=== PATIENT | female | born 1990 | race African-American/Black ===

== ENCOUNTER 2018-06-03 18:13 | Emergency (ER) | payer OTHER ==
[~2018-06-03] VITALS: Ht 170.2 cm; Wt 65.3 kg
[2018-06-03] MEDS ORDERED: IV NORMAL SALINE 1,000ML 1,000 ML IV SCH (18:38)
[2018-06-03 19:14] LABS: BASO # 0.1 x10^3/uL (0.0-0.2); BASO % 1 % (0-3); EOS # 0.2 x10^3/uL (0.0-0.7); EOS % 1 % (0-3); HEMATOCRIT 42.3 % (36.0-47.0); HEMOGLOBIN 14.8 g/dL (12.0-15.5); LYMPH # 0.9 x10^3/uL (1.0-4.8); LYMPH % 7 % (24-48); MEAN CORPUSCULAR HEMOGLOBIN 31 pg (25-35); MEAN CORPUSCULAR HGB CONC 35 g/dL (31-37); MEAN CORPUSCULAR VOLUME 89 fL (79-100); MONO # 0.4 x10^3/uL (0.0-1.1); MONO % 3 % (0-9); NEUT # 11.1 x10^3uL (1.8-7.7); NEUT % 88 % (31-73); PLATELET COUNT 292 x10^3/uL (140-400); RED BLOOD COUNT 4.73 x10^6/uL (3.50-5.40); RED CELL DISTRIBUTION WIDTH 12.3 % (11.5-14.5); WHITE BLOOD COUNT 12.6 x10^3/uL (4.0-11.0)
[2018-06-03 19:19] LABS: BACTERIA,URINE MANY /HPF (0-FEW); BILIRUBIN,URINE NEG (NEG); CLARITY,URINE CLOUDY; COLOR,URINE YELLOW; GLUCOSE,URINE NEG (NEG); NITRITE,URINE NEG (NEG); RBC,URINE 0 /HPF (0-2); SQUAMOUS EPITHELIAL CELL,UR OCC /LPF; UROBILINOGEN,URINE 0.2 mg/dL (0.2 mg/dL); WBC,URINE OCC /HPF (0-4)
--- NOTE | 2018-06-03 19:24 | PHYS DOC ---
Past History Past Medical History: No Pertinent History Past Surgical History: Appendectomy Alcohol Use: None Drug Use: None Adult General Chief Complaint Chief Complaint: ABDOMINAL PAIN HPI HPI 28-year-old female presents with abdominal pain for last 2 days. The patient initially thought that she was constipated, had a good bowel movement yesterday. She continues to have intermittent cramping pain and nausea that is worse after eating. She has been unable to eat very much today because she feels full. The last few weeks she has noticed that she has some crampy abdominal pain after eating that fades over time. She has previously had an appendectomy. She denies increased urinary frequency or dysuria. No diarrhea. He took a home test was negative.[] Review of Systems Review of Systems Constitutional: Denies fever or chills [] Eyes: Denies change in visual acuity, redness, or eye pain [] HENT: Denies nasal congestion or sore throat [] Respiratory: Denies cough or shortness of breath [] Cardiovascular: No additional information not addressed in HPI [] GI: Denies abdominal cramping[] : Denies dysuria or hematuria [] Musculoskeletal: Denies back pain or joint pain [] Integument: Denies rash or skin lesions [] Neurologic: Denies headache, focal weakness or sensory changes [] Endocrine: Denies polyuria or polydipsia [] All other systems were reviewed and found to be within normal limits, except as documented in this note. Current Medications Current Medications Current Medications Medications (Trade) Dose Ordered Sig/Mesha Start Time Stop Time Status Last Admin Dose Admin Sodium Chloride 1,000 ml @ 1,000 mls/hr Q1H 06/03/18 18:38 06/03/18 19:37 Allergies Allergies Allergies Coded Allergies Type Severity Reaction Last Updated Verified No Known Drug Allergies 06/03/18 No Physical Exam Physical Exam Constitutional: Well developed, well nourished, no acute distress, non-toxic appearance. [] HENT: Normocephalic, atraumatic, bilateral external ears normal, oropharynx moist, no oral exudates, nose normal. [] Eyes: PERRLA, EOMI, conjunctiva normal, no discharge. [] Neck: Normal range of motion, no tenderness, supple, no stridor. [] Cardiovascular:Heart rate regular rhythm, no murmur [] Lungs & Thorax: Bilateral breath sounds clear to auscultation [] Abdomen: Suprapubic tenderness is most significant. Some epigastric tenderness that is mild. Old scar on her abdomen from open appendectomy.[] Skin: Warm, dry, no erythema, no rash. [] Back: No tenderness, no CVA tenderness. [] Extremities: No tenderness, no cyanosis, no clubbing, ROM intact, no edema. [] Neurologic: Alert and oriented X 3, normal motor function, normal sensory function, no focal deficits noted. [] Psychologic: Affect normal, judgement normal, mood normal. [] Current Patient Data Vital Signs Vital Signs Date Time Temp Pulse Resp B/P (MAP) Pulse Ox O2 Delivery O2 Flow Rate FiO2 06/03/18 18:20 97.6 77 16 99 Room Air Lab Results Laboratory Tests Test 06/03/18 18:16 06/03/18 18:57 POC Urine HCG, Qualitative hcg negative (Negative) White Blood Count 12.6 x10^3/uL (4.0-11.0) H Red Blood Count 4.73 x10^6/uL (3.50-5.40) Hemoglobin 14.8 g/dL (12.0-15.5) Hematocrit 42.3 % (36.0-47.0) Mean Corpuscular Volume 89 fL (79-100) Mean Corpuscular Hemoglobin 31 pg (25-35) Mean Corpuscular Hemoglobin Concent 35 g/dL (31-37) Red Cell Distribution Width 12.3 % (11.5-14.5) Platelet Count 292 x10^3/uL (140-400) Neutrophils (%) (Auto) 88 % (31-73) H Lymphocytes (%) (Auto) 7 % (24-48) L Monocytes (%) (Auto) 3 % (0-9) Eosinophils (%) (Auto) 1 % (0-3) Basophils (%) (Auto) 1 % (0-3) Neutrophils # (Auto) 11.1 x10^3uL (1.8-7.7) H Lymphocytes # (Auto) 0.9 x10^3/uL (1.0-4.8) L Monocytes # (Auto) 0.4 x10^3/uL (0.0-1.1) Eosinophils # (Auto) 0.2 x10^3/uL (0.0-0.7) Basophils # (Auto) 0.1 x10^3/uL (0.0-0.2) EKG EKG [] Radiology/Procedures Radiology/Procedures [] Course & Med Decision Making Course & Med Decision Making Pertinent Labs and Imaging studies reviewed. (See chart for details) The patient's urine is negative. Her labs show a slightly elevated white count with left shift. Her urine shows many bacteria, but is leukocyte negative and nitrate negative. Her tenderness was consistent with UTI. I offered the patient a choice between treating UTI or 3 days see if this helps or doing a CT scan to further evaluate and she has elected to try the antibiotic. Her upper abdominal pain could be developing gallbladder disease. We discussed this and she will keep an eye on it. Her labs do not show any acute signs of blockage or difficulty with the liver. She is stable for discharge at this time. [] Dragon Disclaimer Dragon Disclaimer This electronic medical record was generated, in whole or in part, using a voice recognition dictation system. Departure Departure: Referrals: ALISHA CHÁVEZ (PCP) POOJA JUÁREZ DO Jun 03, 2018 19:24
[2018-06-03 19:27] LABS: ALBUMIN 4.3 g/dL (3.4-5.0); ALBUMIN/GLOBULIN RATIO 1.2 (1.0-1.7); CALCIUM 9.1 mg/dL (8.5-10.1); CREATININE 0.7 mg/dL (0.6-1.0); GFR 101.1; TOTAL BILIRUBIN 0.8 mg/dL (0.2-1.0); TOTAL PROTEIN 7.9 g/dL (6.4-8.2)
[2018-06-03] MEDS ORDERED: KETOROLAC 30 MG/ML VIAL. IV ONE (19:30)
[2018-06-03] MEDS ORDERED: ONDANSETRON PF 4 MG/2 ML VIAL. IV ONE (19:30)
[2018-06-03] MEDS ORDERED: CEPH-264 PO (20:37)
[2018-06-03 20:40] VITALS: BP 128/74
[2018-06-03] MEDS ORDERED: CEPHALEXIN 250 MG CAPSULE PO ONE (20:45)
== END 2018-06-03 20:45 | disposition home or self-care (01) ==
LOC: ER 18:13
DX: R10.13 Epigastric pain (principal); R82.71 Bacteriuria; Z90.89 Acquired absence of other organs
CPT/HCPCS: 36415; 80053; 81001; 81025; 83690; 85025; 87086; 96374; 96375; 99284; J1885; J2405; J7030

== ENCOUNTER 2018-06-07 08:35 | Emergency (ER) | payer OTHER ==
[~2018-06-07] VITALS: Ht 170.2 cm; Wt 65.3 kg
[~2018-06-07 08:35] MED LIST: CEPH-264 PO
--- NOTE | 2018-06-07 09:12 | PHYS DOC ---
Past History Past Medical History: No Pertinent History Past Surgical History: No Surgical History Alcohol Use: None Drug Use: None Adult General Chief Complaint Chief Complaint: ABDOMINAL PAIN HPI HPI 28 yo female returns to the emergency room with right upper quadrant pain. Patient was seen here 4 days ago with intermittent right upper quadrant pain and suprapubic pain. She was treated for UTI. Patient returns today with right upper quadrant pain and vomiting. She rates the pain in 8 out of 10. It started hurting last night and she thought it would go away but it hasn't gone away. She vomited once at home. She denies , but has not had a period since March. Her hCG was negative 4 days ago. Review of Systems Review of Systems Constitutional: Denies fever or chills [] Eyes: Denies change in visual acuity, redness, or eye pain [] HENT: Denies nasal congestion or sore throat [] Respiratory: Denies cough or shortness of breath [] Cardiovascular: No additional information not addressed in HPI [] GI: RUQ abdominal pain, nausea, vomiting. Denies bloody stools or diarrhea [] : Denies dysuria or hematuria [] Musculoskeletal: Denies back pain or joint pain [] Integument: Denies rash or skin lesions [] Neurologic: Denies headache, focal weakness or sensory changes [] Endocrine: Denies polyuria or polydipsia [] All other systems were reviewed and found to be within normal limits, except as documented in this note. Current Medications Current Medications Current Medications Medications (Trade) Dose Ordered Sig/Mesha Start Time Stop Time Status Last Admin Dose Admin Hydromorphone HCl (Dilaudid) 1 mg 1X ONCE 06/07/18 09:30 06/07/18 09:31 Ondansetron HCl (Zofran) 4 mg 1X ONCE 06/07/18 09:30 06/07/18 09:31 Allergies Allergies Allergies Coded Allergies Type Severity Reaction Last Updated Verified No Known Drug Allergies 06/03/18 No Physical Exam Physical Exam Constitutional: Well developed, well nourished, mild acute distress, non-toxic appearance. Appears to be in pain[] HENT: Normocephalic, atraumatic, bilateral external ears normal, oropharynx moist, no oral exudates, nose normal. [] Eyes: PERRLA, EOMI, conjunctiva normal, no discharge. [] Neck: Normal range of motion, no tenderness, supple, no stridor. [] Cardiovascular:Heart rate regular rhythm, no murmur [] Lungs & Thorax: Bilateral breath sounds clear to auscultation [] Abdomen: RUQ and epigastric tenderness with guarding. [] Skin: Warm, dry, no erythema, no rash. [] Back: No tenderness, no CVA tenderness. [] Extremities: No tenderness, no cyanosis, no clubbing, ROM intact, no edema. [] Neurologic: Alert and oriented X 3, normal motor function, normal sensory function, no focal deficits noted. [] Psychologic: Affect normal, judgement normal, mood normal. [] Current Patient Data Vital Signs Vital Signs Date Time Temp Pulse Resp B/P (MAP) Pulse Ox O2 Delivery O2 Flow Rate FiO2 06/07/18 08:45 98.0 78 22 100 Room Air EKG EKG [] Radiology/Procedures Radiology/Procedures [] Impressions: Right upper quadrant abdominal ultrasound History: Right upper quadrant abdominal pain and nausea. Comparison: None. Technique: Transabdominal ultrasound images are obtained. Findings: Visualized pancreas is unremarkable. Liver is normal in echogenicity. Right hepatic lobe measures 16.5 cm, normal. No focal hepatic masses are identified. Portal flow is hepatopedal. Gallbladder has an unremarkable appearance. Common bile duct caliber is upper limits of normal measuring 7 mm in diameter. The right kidney measures 10.7 cm in length and is without evidence of obstruction or stone. IVC is unremarkable. IMPRESSION: 1. Common bile duct is upper limits of normal in caliber. 2. Gallbladder is normal. Electronically signed by: Joey Martínez MD (06/07/2018 10:01 AM) [id number] Course & Med Decision Making Course & Med Decision Making Pertinent Labs and Imaging studies reviewed. (See chart for details) The patient's labs are significant for a mildly elevated liver enzymes. The patient does not appear to be an obstructive pattern. The ultrasound does not show stones or definite obstruction. Her common bile duct is upper limits of normal. The patient has continued to be nauseous in the emergency room. I've given her 8 of Zofran I will give her 10 of Compazine. I will additionally give her 1 mg of Dilaudid for her pain as she seems unlikely to tolerate by mouth medication at this time. We'll discharge the patient with [place] 5/325, Compazine 10 mg, Zofran ODT 8 mg. I strongly advised that she talk with her PCP as soon as possible about general surgery consult for her gallbladder and a possible HIDA scan. [] Dragon Disclaimer Dragon Disclaimer This electronic medical record was generated, in whole or in part, using a voice recognition dictation system. Departure Departure: Scripts Prochlorperazine Maleate (Compazine) 10 Mg Tablet 10 MG PO Q6-8HRS PRN for NAUSEA/VOMITING, #20 TAB Prov: POOJA JUÁREZ DO 06/07/18 Ondansetron (ZOFRAN ODT) 8 Mg Tab.rapdis 1 TAB PO Q8HRS, #20 TAB Prov: POOJA JUÁREZ DO 06/07/18 Hydrocodone Bit/Acetaminophen (NORCO 5-325 TABLET) 1 Each Tablet 1 TAB PO PRN Q6HRS PRN for PAIN, #14 TAB 0 Refills Prov: POOJA JUÁREZ DO 06/07/18 POOJA JUÁREZ DO Jun 07, 2018 09:12
[2018-06-07 09:23] LABS: BASO % 1 % (0-3); EOS # 0.2 x10^3/uL (0.0-0.7); EOS % 4 % (0-3); HEMATOCRIT 38.2 % (36.0-47.0); HEMOGLOBIN 13.3 g/dL (12.0-15.5); LYMPH # 1.6 x10^3/uL (1.0-4.8); LYMPH % 30 % (24-48); MEAN CORPUSCULAR HEMOGLOBIN 31 pg (25-35); MEAN CORPUSCULAR HGB CONC 35 g/dL (31-37); MEAN CORPUSCULAR VOLUME 90 fL (79-100); MONO # 0.3 x10^3/uL (0.0-1.1); MONO % 5 % (0-9); NEUT # 3.2 x10^3uL (1.8-7.7); NEUT % 61 % (31-73); PLATELET COUNT 266 x10^3/uL (140-400); RED BLOOD COUNT 4.26 x10^6/uL (3.50-5.40); RED CELL DISTRIBUTION WIDTH 12.5 % (11.5-14.5); WHITE BLOOD COUNT 5.3 x10^3/uL (4.0-11.0)
[2018-06-07] MEDS ORDERED: ONDANSETRON PF 4 MG/2 ML VIAL. IV ONE ×2 (09:30→10:00)
[2018-06-07] MEDS ORDERED: HYDROmorphone PF 1 MG/ML DISP.SYRIN IM ONE (09:30)
[2018-06-07 09:34] LABS: ALBUMIN 4.1 g/dL (3.4-5.0); ALBUMIN/GLOBULIN RATIO 1.4 (1.0-1.7); CALCIUM 8.7 mg/dL (8.5-10.1); CREATININE 0.6 mg/dL (0.6-1.0); GFR 146.2; POTASSIUM 3.7 mmol/L (3.5-5.1); TOTAL BILIRUBIN 0.7 mg/dL (0.2-1.0); TOTAL PROTEIN 7.1 g/dL (6.4-8.2)
--- NOTE | 2018-06-07 10:05 | RAD ---
Right upper quadrant abdominal ultrasound History: Right upper quadrant abdominal pain and nausea. Comparison: None. Technique: Transabdominal ultrasound images are obtained. Findings: Visualized pancreas is unremarkable. Liver is normal in echogenicity. Right hepatic lobe measures 16.5 cm, normal. No focal hepatic masses are identified. Portal flow is hepatopedal. Gallbladder has an unremarkable appearance. Common bile duct caliber is upper limits of normal measuring 7 mm in diameter. The right kidney measures 10.7 cm in length and is without evidence of obstruction or stone. IVC is unremarkable. IMPRESSION: 1. Common bile duct is upper limits of normal in caliber. 2. Gallbladder is normal. Electronically signed by: Joey Martínez MD (06/07/2018 10:01 AM) [id number]
[2018-06-07 11:00] VITALS: BP 122/62
[2018-06-07 11:43] LABS: BACTERIA,URINE FEW /HPF (0-FEW); BILIRUBIN,URINE NEG (NEG); CLARITY,URINE CLOUDY; COLOR,URINE AMBER; GLUCOSE,URINE NEG (NEG); NITRITE,URINE NEG (NEG); SQUAMOUS EPITHELIAL CELL,UR MOD /LPF; UROBILINOGEN,URINE 1 mg/dL (0.2 mg/dL)
[2018-06-07] MEDS ORDERED: HYDR-971 PO (12:15)
[2018-06-07] MEDS ORDERED: ONDA8TAB12 PO (12:15)
[2018-06-07] MEDS ORDERED: PROC10TA57 PO (12:15)
[2018-06-07] MEDS ORDERED: HYDROmorphone PF 1 MG/ML DISP.SYRIN IV ONE (12:45)
[2018-06-07] MEDS ORDERED: PROCHLORPERAZINE 10 MG/2 ML VIAL. IV ONE (12:45)
== END 2018-06-07 12:35 | disposition home or self-care (01) ==
LOC: ER 08:35
DX: R10.11 Right upper quadrant pain (principal); R11.2 Nausea with vomiting, unspecified; R74.8 Abnormal levels of other serum enzymes
CPT/HCPCS: 36415; 76705; 80053; 81001; 83690; 85025; 87086; 96372; 96374; 96375; 96376; 99285; J0780; J1170; J2405

== ENCOUNTER 2018-12-07 08:50 | Emergency (ER) | payer OTHER ==
[~2018-12-07] VITALS: Ht 167.6 cm; Wt 68.0 kg
[~2018-12-07 08:50] MED LIST changes: +HYDR-3165 PO; +ONDA8TAB12 PO; +PROC10TA57 PO
[2018-12-07 09:42] LABS: HEMATOCRIT 37.3 % (36.0-47.0); HEMOGLOBIN 13.1 g/dL (12.0-15.5); RED BLOOD COUNT 4.1 x10^6/uL (3.50-5.40); RED CELL DISTRIBUTION WIDTH 12.9 % (11.5-14.5); WHITE BLOOD COUNT 7.5 x10^3/uL (4.0-11.0)
--- NOTE | 2018-12-07 10:22 | PHYS DOC ---
Past History Past Medical History: Arthritis Past Surgical History: Appendectomy Alcohol Use: None Drug Use: None Adult General Chief Complaint Chief Complaint: VAGINAL BLEEDING HPI HPI Patient is a 28 year old female who presents with complaining of abnormal vaginal bleeding. Patient is without taking any contraception and states she had regular menstruation that ended on October 24, 2018 after 2 weeks that started to have vaginal bleeding with episodes of spotting and passing blood clots intermittently. Patient denies agitation, abdominal pain except during episodes of passing blood clots, dizziness, shortness of breath and chest pain, urinary symptom. Patient had negative blood test at [facility] but his concern about having vaginal bleeding for more than one month. Review of Systems Review of Systems Constitutional: Denies fever or chills [] Eyes: Denies change in visual acuity, redness, or eye pain [] HENT: Denies nasal congestion or sore throat [] Respiratory: Denies cough or shortness of breath [] Cardiovascular: No additional information not addressed in HPI [] GI: Denies abdominal pain, nausea, vomiting, bloody stools or diarrhea [] : Denies dysuria or hematuria [] Musculoskeletal: Denies back pain or joint pain [] Integument: Denies rash or skin lesions [] Neurologic: Denies headache, focal weakness or sensory changes [] Endocrine: Denies polyuria or polydipsia [] All other systems were reviewed and found to be within normal limits, except as documented in this note. Allergies Allergies Allergies Coded Allergies Type Severity Reaction Last Updated Verified No Known Drug Allergies 06/03/18 No Physical Exam Physical Exam Constitutional: Well developed, well nourished, no acute distress, non-toxic appearance. [] HENT: Normocephalic, atraumatic, oropharynx moist. [] Eyes: PERRLA, EOMI, conjunctiva normal, no discharge. [] Neck: Normal range of motion, no tenderness, supple, no stridor. [] Cardiovascular:Heart rate regular rhythm, no murmur [] Lungs & Thorax: Bilateral breath sounds clear to auscultation [] Abdomen: Bowel sounds normal, soft, no tenderness, no masses, no pulsatile masses. [] Skin: Warm, dry, no erythema, no rash. [] Back: No tenderness, no CVA tenderness. [] Extremities: No tenderness, no cyanosis, no clubbing, ROM intact, no edema. [] Neurologic: Alert and oriented X 3, normal motor function, normal sensory function, no focal deficits noted. [] Psychologic: Affect normal, judgement normal, mood normal. [] Current Patient Data Vital Signs Vital Signs Date Time Temp Pulse Resp B/P (MAP) Pulse Ox O2 Delivery O2 Flow Rate FiO2 12/07/18 08:56 97.8 66 18 100 Room Air Lab Results Laboratory Tests Test 12/07/18 09:10 12/07/18 09:25 POC Urine HCG, Qualitative hcg negative (Negative) White Blood Count 7.5 x10^3/uL (4.0-11.0) Red Blood Count 4.10 x10^6/uL (3.50-5.40) Hemoglobin 13.1 g/dL (12.0-15.5) Hematocrit 37.3 % (36.0-47.0) Mean Corpuscular Volume 91 fL (79-100) Mean Corpuscular Hemoglobin 32 pg (25-35) Mean Corpuscular Hemoglobin Concent 35 g/dL (31-37) Red Cell Distribution Width 12.9 % (11.5-14.5) Platelet Count 318 x10^3/uL (140-400) Maternal Serum HCG Beta Subunit < 1 mIU/mL (0-6) EKG EKG [] Radiology/Procedures Radiology/Procedures [][place] [address] IMAGING REPORT Signed PATIENT: BONILLA RODRIGUES ACCOUNT: [id number] : 1990 LOCATION: ER AGE: 28 SEX: F EXAM STATUS: REG ER ORD. PHYSICIAN: DIANA MORAN MD REASON: abnormal vaginal bleeding PROCEDURE: US PELVIS W/TV US PELVIS W/TV History: Bleeding off and on Comparison: None. Findings: Multiple transabdominal sonographic images of the pelvis are submitted. Uterus measures 10 x 3.5 x 5.3 cm. Endometrium measured 0.9 cm. Right ovary measured 2.5 x 3.7 x 2.8 cm with normal low resistance vascularity. Left ovary measured 1.8 x 2.9 x 4.1 cm, normal low resistance vascularity. Transvaginal ultrasound: Multiple transvaginal sonographic images of the pelvis are submitted. Endometrium measured 0.9 cm, minimal fluid in the endometrial cavity. Uterus measured 8.4 x 4.2 x 5.3 cm. There is minimal free fluid. Right ovary measured 2.8 x 2.2 x 5 cm, normal low resistance vascularity and color flow. Left ovary measures 3.8 x 1.9 x 4.3 cm with normal low resistance vascularity and color flow. Impression: 1. Endometrial thickness is within normal limits, minimal fluid in the endometrial cavity possible minimal blood products. There is minimal free fluid. No other abnormality is demonstrated. Electronically signed by: Tye Hernandez MD (12/07/2018 11:00 AM) [id number] DICTATED AND SIGNED BY: TYE HERNANDEZ MD DATE: 12/07/18 1057 CC: ALISHA CHÁVEZ; DIANA MORAN MD ~ Course & Med Decision Making Course & Med Decision Making Pertinent Labs and Imaging studies reviewed. (See chart for details) Evaluation of patient in ER showed 28-year-old female patient complaining of abnormal vaginal bleeding for more than one month. Patient had unremarkable physical exam and labs and pelvic ultrasound. Patient instructed to follow-up with her [employer]ST for possibly starting oral contraception. Dragon Disclaimer Dragon Disclaimer This electronic medical record was generated, in whole or in part, using a voice recognition dictation system. Departure Departure: Impression: Primary Impression: Dysfunctional uterine bleeding Disposition: HOME, SELF-CARE (@1119) Condition: IMPROVED Referrals: ALISHA CHÁVEZ (PCP) Patient Instructions: Uterine Bleeding, Dysfunctional Additional Instructions: Follow-up with your [employer] E[employer] INVESTMENT ANALYST in 2 or 3 days Drink plenty of liquids Return to ER if not feeling better May take [id number] iron DIANA MORAN MD Dec 07, 2018 10:22
--- NOTE | 2018-12-07 11:04 | RAD ---
US PELVIS W/TV History: Bleeding off and on Comparison: None. Findings: Multiple transabdominal sonographic images of the pelvis are submitted. Uterus measures 10 x 3.5 x 5.3 cm. Endometrium measured 0.9 cm. Right ovary measured 2.5 x 3.7 x 2.8 cm with normal low resistance vascularity. Left ovary measured 1.8 x 2.9 x 4.1 cm, normal low resistance vascularity. Transvaginal ultrasound: Multiple transvaginal sonographic images of the pelvis are submitted. Endometrium measured 0.9 cm, minimal fluid in the endometrial cavity. Uterus measured 8.4 x 4.2 x 5.3 cm. There is minimal free fluid. Right ovary measured 2.8 x 2.2 x 5 cm, normal low resistance vascularity and color flow. Left ovary measures 3.8 x 1.9 x 4.3 cm with normal low resistance vascularity and color flow. Impression: 1. Endometrial thickness is within normal limits, minimal fluid in the endometrial cavity possible minimal blood products. There is minimal free fluid. No other abnormality is demonstrated. Electronically signed by: Black Hernandez MD (12/07/2018 11:00 AM) [id number]
[2018-12-07 11:26] VITALS: BP 125/82
== END 2018-12-07 11:27 | disposition home or self-care (01) ==
LOC: ER 08:50
DX: N93.8 Other specified abnormal uterine and vaginal bleeding (principal); Z90.89 Acquired absence of other organs
CPT/HCPCS: 36415; 76830; 76856; 81025; 84702; 85027; 99284-25